=== PATIENT | female | born 1960 | race Caucasian/White ===

== ENCOUNTER → 2020-07-20 | Outpatient (CLI) | payer OTHER ==
[~2020-07-20] MED LIST: ALEVE220 M1 PO; BUPROPION XL300 MG PO; LORAZEPAM 0.50.5 MG PO; LOSARTAN-HCTZ1 EAC2 PO; MELOXICAM15 MG PO; VALTREX 500 MG500 M1 PO
== END ==
LOC: LAB 14:49
PROVIDERS: ATTEND Orthopaedic Surgery
DX: Z01.812 Encounter for preprocedural laboratory examination (principal); Z20.828 Contact with and (suspected) exposure to other viral communicable diseases

== ENCOUNTER 2020-07-25 08:43 | Observation (INO) | payer OTHER ==
[2020-07-20 13:02] LABS: HEMATOCRIT 42.4 % (37.0-47.0); HEMOGLOBIN 14.3 gm/dL (12.0-15.0); MCH 29.9 pg (26.0-34.0); MCHC 33.7 g/dL (28.0-37.0); MCV 88.6 fL (80.0-100.0); RBC 4.79 mil/uL (4.20-5.00); RDW 14.3 % (10.5-14.5); WBC 7.2 thou/uL (4.0-11.0)
[2020-07-20 13:03] LABS: URINE BILIRUBIN NEGATIVE (Negative); URINE BLOOD NEGATIVE (Negative); URINE CLARITY CLEAR; URINE COLOR YELLOW; URINE GLUCOSE-RANDOM* NEGATIVE (Negative); URINE KETONES NEGATIVE (Negative); URINE LEUKOCYTES-REFLEX NEGATIVE (Negative); URINE NITRITE-REFLEX NEGATIVE (Negative); URINE PROTEIN (DIPSTICK) NEGATIVE (Negative); URINE SPECIFIC GRAVITY 1.015 (1.005-1.035); URINE UROBILINOGEN 0.2 E.U./dl (0.2-1.0)
[2020-07-20 13:22] LABS: ALBUMIN 4.5 g/dL (3.4-5.0); CALCIUM 9.3 mg/dL (8.5-10.1); CREATININE 0.8 mg/dL (0.6-1.0)
[2020-07-20 13:32] LABS: PROTIME 10.5 Seconds (9.3-11.4)
--- NOTE | 2020-07-20 13:37 | EKG ---
[facility] [place] [address] ELECTROCARDIOGRAM REPORT Name: MANPREET BRADLEY Room #: PRE IN M.R.#: [id number] Admission: Attend Phys: Eric Ordaz MD Discharge: Date of : 62 Report #: [id number] THIS REPORT FOR: cc: Frankie Lopez James A. DO Santiago, Patrick MD [facility] ~ THIS REPORT FOR: //name// [facility] Test Date: 2020-07-20 Test Time: 12:55:55 Pat Name: MANPREET BRADLEY Department: Room: Gender: F Supply Aide: LISA : 1960 Requested By: Eric Ordaz Order Number: [id number] MD: En Leo Measurements Intervals [place] Rate: 57 P: 17 [place]: 146 QRS: 19 QRSD: 97 T: 59 QT: 440 QTc: 429 Interpretive Statements Sinus rhythm Baseline wander in lead(s) I,III,aVL No previous ECG available for comparison Electronically Signed On 07-20-2020 13:37:45 CDT by En Leo [email or web address] <ELECTRONICALLY SIGNED> By: En Leo MD, FACC 07/20/20 1337 1255 1255 En Leo MD, FAC /EPI
[~2020-07-25] VITALS: Ht 162.6 cm; Wt 79.4 kg
--- NOTE | ~2020-07-25 | O ---
[facility] [place] [address] OPERATIVE REPORT Name: MANPREET BRADLEY Room #: 447-P ADM IN M.R.#: [id number] Admission: 07/25/20 Attend Phys: Eric Ordaz MD Discharge: Date of : 62 Report #: [id number] THIS REPORT FOR: cc: Frankie Lopez,Eric Horan MD ~ CC: Frankie Ordaz DATE OF SERVICE: 07/25/2020 PREOPERATIVE DIAGNOSIS: Bilateral knee osteoarthritis. POSTOPERATIVE DIAGNOSIS: Bilateral knee osteoarthritis. PROCEDURE: Bilateral total knee arthroplasty using Navio robotic assistance. SURGEON: Eric Ordaz MD. APPLICATIONS TESTER: Marietta Adams PA-C. INDICATIONS FOR APPLICATIONS TESTER: Throughout the case, extensive retraction and manipulation of the knee was required. This was afforded to me by my assistant professor of psychology. ANESTHESIA: LMA with an adductor canal block. IMPLANTS: For the right is a Gupta and Nephew size 5 Journey II BCS Oxinium femur, size 3 tibia, size 12 constrained polyethylene and size 32 patella. For the left is a size 4 Gupta and Nephew Journey II BCS Oxinium femur, size 3 tibia, size 13 polyethylene and size 32 patella. TOURNIQUET TIME: 52 minutes for the right and 56 minutes for the left. ESTIMATED BLOOD LOSS: 50 mL. COMPLICATIONS: None. SPECIMENS: None. CONDITION UPON LEAVING THE OPERATING ROOM: Stable. INDICATIONS FOR PROCEDURE: The patient is a 60-year-old female with bilateral knee osteoarthritis. She had failed conservative measures for this and after discussion with her, she elected for bilateral total knee arthroplasty. DESCRIPTION OF PROCEDURE: Risks, benefits, alternatives, complications were [facility] [address] [place] [address] OPERATIVE REPORT Name: MANPREET BRADLEY Room #: 447-P [facility] IN .R.#: [id number] Admission: 07/25/20 Attend Phys: Eric Ordaz MD Discharge: Date of : 62 Report #: [id number] discussed in detail with the patient including but not limited to risk of anesthesia, risk of damage to nerves, arteries, blood vessels, risk for infection, bleeding, risk for continued knee pain, need for reoperation. Informed consent was obtained from the patient. Bilateral knees were appropriately marked in the preoperative holding area. Adductor canal blocks were placed by anesthesia. She was brought to the operating room and placed in the supine position on the operating room table. IV Ancef was given for preoperative antibiotics. LMA anesthesia was induced without complication. Tourniquets were placed on bilateral thighs. Bilateral lower extremities were prepped and draped in normal sterile fashion. Timeout was performed properly identifying the patient and procedure as well as the instrumentation and implants. All in the operating room were in agreement. Following dictation applies to both knees. The extremity was exsanguinated, tourniquet was inflated. Tourniquet time again for the right side was 52 minutes and for the left is 56 minutes. Standard midline approach to the knee was made with a #10 blade through the skin. Dissection was taken down sharply to the fascia and deep flaps were developed medially and laterally. Fresh #10 blade was used to make a medial parapatellar arthrotomy and the knee was inspected. There was severe tricompartmental osteoarthritis. ACL and PCL were removed sharply. Reference pins were placed in the femur and the tibia and the knee was then digitally mapped using the [employer] robotic system. Intraoperative plan was made and we sized the size 5 femur for the right, a size 4 for the left and a size 3 for the tibia with a size 11 spacer. After acceptance of the intraoperative plan, the distal femoral cut was made with Navio bur. Distal femoral cutting block was pinned in place and the chamfer cuts were made. Attention was turned to the tibia. Remainder of the menisci removed with Bovie cautery. Tibial resection guide was pinned in place and tibial resection was made. Flexion and extension gaps were then checked and found to have good balance in flexion and extension both medially and laterally. Tibia was sized, found to be a size 3. An size 3 tibial trial was placed, pinned and punched, a size 5 femoral trial for the right and a 4 for the left was placed and box cut was made. This was then trialed with multiple polyethylenes. A 12 constrained polyethylene fit best for the right and a 13 for the left. After this, 9 mm was resected from the posterior surface of the patella and a size 32 patellar trial button was placed. Knee was taken through range of motion, found to be stable, found to have good patellar tracking. Trial components were removed. Bony ends were thoroughly irrigated with normal saline. A final size 3 tibia, a size 5 Journey II BCS Oxinium femur for the right and a size 4 BCS Journey II Oxinium femur for the left cemented in place using standard cementation techniques. In addition, a size 32 patella was cemented. While the cement cured, a periarticular injection consisting of morphine, ropivacaine, epinephrine, Toradol was placed around the knee joint capsule. After the cement cured, the tourniquet was deflated. Hemostasis was obtained with Bovie cautery. Final size 13 polyethylene was placed on the left. A size 12 constrained was placed on the right. A gram of vancomycin was placed deep in the joint. Fascia was closed with 0 Vicryl, skin was closed with 2-0 Vicryl, 3-0 Monocryl. Dermabond and a [facility] [address] [place] [address] OPERATIVE REPORT Name: MANPREET BRADLEY Room #: 447-P [facility] IN .R.#: [id number] Admission: 07/25/20 Attend Phys: Eric Ordaz MD Discharge: Date of : 62 Report #: [id number] RENE dressing were applied. The patient tolerated this procedure well and went to recovery room under care of anesthesia postoperatively. By: 1613 1710 Eric Ordaz MD /nt
[2020-07-25 11:03] VITALS: BP 144/94
--- NOTE | 2020-07-25 18:03 | NUR ---
PT ARRIVED ON UNIT AT 1650, SCREAMING THAT HER PAIN WAS A 10/10. PT RECEIVED MORPHINE 4MG ORDERED FOR PAIN. PT ATE A FEW BITES OF FOOD, WALKED TO THE BATHROOM WITH WITHOUT CALLING STAFF. PT TOLD NURSE SHE IS NOT A FALL RISK AND WILL NOT WEAR YELLOW SOCKS. PT URINATED 200CC. PT RECEIVED EDUCATION FROM NURSE. PT WAS USING PROFANITY WHEN SHE FOUND OUT HER HAS TO LEAVE AT 1900 D/T COVID POLICY. PT VSS STABLE AT THIS TIME OF ARRIVAL. LAP/SURGICAL SITES ARE CDI. CALL LIGHT IN REACH, FALL PRECAUTIONS IN PLACE/BED ALARM. WILL CONTINUE TO MONITOR.
--- NOTE | 2020-07-25 18:58 | NUR ---
PATIENT ADMITTED FROM OR WITH BILATERAL NAVIO TOTAL KNEE REPLACEMENTS, RENE DRESSING IN PLACE, KNEE HIGH MARIBELL HOSE IN PLACE, SCD'S, [facility]. PATIENT HAS RIGHT WRIST IV, IV FLUIDS STARTED AT 100CC/HR. PATIENT C/O NAUSEA, ZOFRAN 4 MG IV GIVEN. NAUSEA IMPROVED, PATIENT WANTS REGULAR DIET, DIET ADVANCED TO REGULAR. PATIENT C/O PAIN WITH OMAR. KNEES, OXYCODONE 1 TABLET GIVEN DURING ADMISSION. AT BEDSIDE. ADMISSION COMPLETED, REPORT GIVEN TO MARCELLA/SOHA.
[2020-07-25 19:15] VITALS: BP 138/64
[2020-07-25 20:03] VITALS: BP 134/83
[2020-07-25 20:15] VITALS: BP 126/77
[2020-07-25 21:15] VITALS: BP 131/72
[2020-07-25 22:15] VITALS: BP 131/84
--- NOTE | 2020-07-25 23:44 | NUR ---
1900 ASSUMED CARE OF PT AFTER BEDSIDE REPORT, HOURLY VITALS HAVE BEEN STABLE, WILL CONTINUE TO MONITOR, PT STATES PAIN RELIEF PARTIAL WITH PAIN MED WILL CONTINUE TO MONITOR. 2099 DR BEAUCHAMP CONTACTED SECONDARY TO PT MORPHINE ALLERGY, MORPHINE DISCONTINUED, AND NEW ORDERS RECEIVED SEE DEC. 2299 PT WITH COMPLAINTS OF NAUSEA, MEDS GIVEN PER DEC. 2329 PT ATTEMPT TO STAND AND PIVOT TO BEDSIDE COMMODE, BUT UNABLE TO BEAR WEIGH SECONDARY TO PAIN, STATES SHE WILL TRY AGAIN IN THE AM WITH PT.
[2020-07-26 00:12] VITALS: BP 124/80
[2020-07-26 04:19] VITALS: BP 113/62
[2020-07-26 05:49] LABS: HEMATOCRIT 37.5 % (37.0-47.0); HEMOGLOBIN 12.2 gm/dL (12.0-15.0); MCH 29.5 pg (26.0-34.0); MCHC 32.7 g/dL (28.0-37.0); MCV 90.5 fL (80.0-100.0); RBC 4.14 mil/uL (4.20-5.00); RDW 14.2 % (10.5-14.5)
[2020-07-26 08:04] VITALS: BP 114/65
[2020-07-26 11:58] VITALS: BP 114/65
--- NOTE | 2020-07-26 13:26 | NUR ---
PT CARE ASSUMED AT 0700. A&Ox4. PT TOLERATING PAIN WELL WITH PAIN MEDICATION ON BOARD. POLARPACK,RENE DRESSING. TEDHOSE IN PLACE. ALL SENSATIONS INTACT. CONTINUES PULSE OX IN PLACE OVER NIGHT. IV PATENT WITH NO REDNESS OR EDEMA, FLUIDS INFUSING. PT CLEARED PATIENT TO DC. WAITING ON WALKER. DISCHARGE INSTRUCTIONS GIVEN, FOLLOWED WITH NO QUESTIONS. IV REMOVED. FALL PROTOCOL IN PLACE. CALL LIGHT IN REACH. WILL CONTINUE TO MONITOR UNTIL WALKER ARRIVES.
[2020-07-26 14:27] VITALS: BP 114/65
--- NOTE | 2020-07-26 19:02 | NUR ---
Pt is s/p aaron tkr with dc home today. Outpt therapy plans in place. Pt needed a rwalker and copywriter sent referrals /script to [facility]. [facility] is out of network. [facility] was able to get [facility] auth and deliever to the pts room. No other dc planning needs indicated.
== END 2020-07-26 15:27 | disposition home or self-care (01) ==
LOC: PRE 08:43 → TBA 10:30 → 4S 10:30 → PRE 11:30 → 4S 17:19
PROVIDERS: ADMIT Orthopaedic Surgery; ATTEND Orthopaedic Surgery
DX: M17.0 Bilateral primary osteoarthritis of knee (principal); I10 Essential (primary) hypertension; F41.9 Anxiety disorder, unspecified; G43.909 Migraine, unspecified, not intractable, without status migrainosus; E66.3 Overweight; Z68.30 Body mass index [BMI] 30.0-30.9, adult; Z87.891 Personal history of nicotine dependence; Z79.899 Other long term (current) drug therapy
CPT/HCPCS: 10102; 50010; 50101; 50415; 50915; 50954; 51130; 51225; 51320; 53000; 53078; 53365; 54118; 56527; 56528; 57095; 57103; 57110; 57127; 57180; 62110; 62900; 64042; 70005